=== PATIENT | male | born 1985 ===

== ENCOUNTER 2021-04-18 08:49 | Emergency (ER) | payer BC ==
--- NOTE | 2021-04-18 10:03 | EDM.PDOC ---
ED HPI GENERAL MEDICAL PROBLEM - General Chief Complaint: Respiratory Problem Stated Complaint: cough Time Seen by Provider: 04/18/21 09:45 Source of Information: Reports: Patient History Limitations: Reports: No Limitations - History of Present Illness INITIAL COMMENTS - FREE TEXT/NARRATIVE: 35-year-old male presents to the ED complaining of a cough. Patient had a gradual onset approximately 2 weeks ago there was a period in which he felt better but then it got worse again. With a dramatic increase in the intensity of his cough last night and into this morning. Positive for nausea induced with coughing fits, headache associated with coughing fits as well. Negative for: Chest pain, shortness of breath, syncope/near syncope, constipation/diarrhea, blurred vision, difficulty swallowing, rashes, fever, or trauma. Previous medical history of asthma, and allergy to cats - Related Data Allergies Allergy/AdvReac Type Severity Reaction Status Date / Time Sulfa (Sulfonamide Allergy Rash Verified 04/18/21 09:55 Antibiotics) Home Meds: Home Meds Albuterol Sulfate [Albuterol Sulfate Hfa] 8.5 gm IH Q6HR #1 hfa.aer.ad 04/18/21 [Rx] Cetirizine HCl [All Day Allergy Relief] 10 mg PO DAILY #30 capsule 04/18/21 [Rx] Promethazine HCl/Codeine [Promethazine-Codeine Syrup] 5 ml PO Q6HR #1 bottle 04/18/21 [Rx] lisinopriL [Lisinopril] 10 mg PO DAILY 04/18/21 [History] Past Medical History Cardiovascular History: Reports: Hypertension Respiratory History: Reports: Asthma Musculoskeletal History: Reports: Back Pain, Chronic, Other (See Below) Other Musculoskeletal History: Left shoulder dislocation with football Social & Family History - Tobacco Use Tobacco Use Status *Q: Never Tobacco User Second Hand Smoke Exposure: No - Caffeine Use Caffeine Use: Reports: Coffee - Recreational Drug Use Recreational Drug Use: No ED ROS GENERAL - Review of Systems Review Of Systems: Comprehensive ROS is negative, except as noted in HPI. ED EXAM, GENERAL - Physical Exam Exam: See Below Free Text/Narrative:: ABC intact. No apparent distress. No obvious trauma. Speaking in full sentences. Alert and oriented x3, GCS 456. Exam Limited By: No Limitations General Appearance: Alert, WD/WN, No Apparent Distress Eye Exam: Bilateral Eye: Conjunctival Injection (Negative for), EOMI, PERRL Ears: Normal External Exam, Normal Canal, Hearing Grossly Normal, Normal TMs Ear Exam: Bilateral Ear: Auricle Normal, Canal Normal, TM normal Nose: Normal Inspection, No Blood, Clear Rhinorrhea (Pale mucosa) Throat/Mouth: Normal Inspection, Normal Lips, Normal Teeth, Normal Gums, Normal Voice, No Airway Compromise, Other (Evidence of postnasal drip with slight irritation) Head: Atraumatic, Normocephalic Neck: Normal Inspection, Supple, Non-Tender, Full Range of Motion. No: Lymphadenopathy (R), Lymphadenopathy (L) Respiratory/Chest: No Respiratory Distress, Lungs Clear, Normal Breath Sounds, No Accessory Muscle Use, Chest Non-Tender Cardiovascular: Normal Peripheral Pulses, Regular Rate, Rhythm, No Edema, No Gallop, No JVD, No Murmur, No Rub Peripheral Pulses: 2+: Radial (L), Radial (R) GI/Abdominal: Soft, Non-Tender, No Organomegaly, No Distention (Male) Exam: Deferred Rectal (Males) Exam: Deferred Extremities: Normal Inspection, Normal Range of Motion, Non-Tender, Normal Capillary Refill, No Pedal Edema Neurological: Alert, Oriented, Normal Cognition, Normal Gait Psychiatric: Normal Affect, Normal Mood Skin Exam: Warm, Dry, Intact, Normal Color, No Rash Course - Vital Signs Last Recorded V/S: Last Vital Signs Temp 100.6 F 04/18/21 09:02 Pulse Resp BP Pulse Ox - Orders/Labs/Meds Orders: Active Orders 24 hr Category Date Time Status EKG 12 Lead [EK] Routine Ther 04/18/21 10:09 Ordered Labs: Laboratory Tests 04/18/21 Range/Units 09:00 SARS CoV-2 RNA Rapid HAILEY Negative Meds: Medications Discontinued Medications Generic Name Dose Route Start Last Admin Trade Name Freq PRN Reason Stop Dose Admin Albuterol/Ipratropium 3 ml 04/18/21 10:05 04/18/21 10:05 Albuterol/Ipratropium 3.0-0.5 Mg/3 Ml Neb Soln NEB 04/18/21 10:06 3 ml NOW STA Administration Departure - Departure Time of Disposition: 10:15 Disposition: Home, Self-Care 01 Clinical Impression: Viral upper respiratory infection, Cough - Discharge Information *PRESCRIPTION DRUG MONITORING PROGRAM REVIEWED*: No *COPY OF PRESCRIPTION DRUG MONITORING REPORT IN PATIENT JASPAL: No Prescriptions: Albuterol Sulfate [Albuterol Sulfate Hfa] 8.5 gm IH Q6HR #1 hfa.aer.ad Cetirizine HCl [All Day Allergy Relief] 10 mg PO DAILY #30 capsule Promethazine HCl/Codeine [Promethazine-Codeine Syrup] 5 ml PO Q6HR #1 bottle Instructions: Cough, Adult, [id number], Viral Respiratory Infection, [id number], Cough, Adult Forms: ED Department Discharge Additional Instructions: Take straight honey drink to coat throat and help cough. Ibuprophen for discomfort. Drink Pediatlytye for hydration. May use humidifier Obtaine Zyrtec over the counter and take as directied. Take Ventolin inhaler 2 puffs every 6 hours. 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 Sepsis Event Note (ED) - Evaluation Sepsis Screening Result: No Definite Risk - Focused Exam Vital Signs: Vital Signs Temp 04/18/21 09:02 100.6 F - My Orders Last 24 Hours: My Active Orders 04/18/21 10:09 EKG 12 Lead [EK] Routine - Assessment/Plan Last 24 Hours: My Active Orders 04/18/21 10:09 EKG 12 Lead [EK] Routine Assessment:: 35-year-old male who presents for evaluation of cough. This is consistent with an oral upper respiratory tract infection. There are no signs at this point of other serious bacterial infection such as otitis media, retropharyngeal abscess, epiglottitis, peritonsillar abscess, strep pharyngitis, pneumonia, sinusitis, meningitis, bacteremia. Given clear lung sounds lack of a fever, no hypoxia and no respiratory distress I do not feel the patient needs a chest x-ray at this point as the possibility of a bacterial pneumonia is very unlikely. There are no concerning gastrointestinal symptoms at this point and no signs of dehydratio n. Close follow-up with primary care physician is indicated. Return to the ED if he had a fever greater than 103, protracted vomiting, confusion or shortness of breath Plan: ABC, history, exam, DuoNeb, patient education/shared decision-making, patient sent home with amatory prescriptions for albuterol HFA, Zyrtec, Phenergan/codeine cough syrup, -Patient and/or litigation claim representative understood and agreed to treatment plan. -All questions were answered to the patient's satisfaction. -Patient is discharged in stable condition. Patient to return to the ED if fever greater than 103, protracted vomiting, confusion, shortness of breath. Follow-up with primary care provider within 10 days.
[2021-04-18] MEDS ORDERED: Albuterol/Ipratropium 3.0-0.5 MG/3 ML Neb Soln NEB STA (10:05)
== END 2021-04-18 10:20 | disposition home or self-care (01) ==
LOC: LB.ED 08:49
DX: J06.9 Acute upper respiratory infection, unspecified (principal); I10 Essential (primary) hypertension; Z88.2 Allergy status to sulfonamides; Z79.899 Other long term (current) drug therapy; Z20.822 Contact with and (suspected) exposure to COVID-19
CPT/HCPCS: 93005; 99283-25; J7620-GY; U0002